=== PATIENT | female | born 1945 | race Caucasian/White ===

== ENCOUNTER 2023-07-14 15:51 | Observation (INO) ==
[2023-07-14 16:27] LABS: ABS Lymphocytes 1.3 10^3/uL (1.0-4.8); ABS Monocytes 0.9 10^3/uL (0.0-0.9); ABS Neutrophils 7.7 10^3/uL (1.5-7.6); ABS Nucleated RBC 0.01 10^3/ul; Eosinophil % 0.4 %; Hematocrit 36.2 % (35-45); Hemoglobin 12.6 g/dL (11.5-14.3); Mean Corpuscular Hemoglobin 31.4 pg (27-33); Mean Corpuscular Hgb Conc 34.7 g/dL (31-36); Mean Corpuscular Volume 90.5 fL (80-97); Mean Platelet Volume 7.9 fL (7.5-11.2); Nucleated Red Blood Cells % 0.1 /100 WBC (0.0-0.4); Platelet Count 225 10^3/uL (150-450); Red Cell Distribution Width 13.5 % (12-17); White Blood Count 9.9 10^3/uL (3.8-11.8)
[2023-07-14 16:53] LABS: Albumin 3.5 g/dL (3.2-5.2); Albumin/Globulin Ratio 1.3 (1-3); C Reactive Protein 139.68 mg/L (<8.01); Calcium 8.7 mg/dL (8.6-10.3); Creatinine, Serum 1.17 mg/dL (0.51-0.95); Globulin 2.8 g/dL (2-4); Potassium 4.3 mmol/L (3.5-5.0); Total Bilirubin 0.6 mg/dL (0.2-1.0); Total Protein 6.3 g/dL (6.4-8.9); eGFR CKD-EPI 48.4 (>60)
[2023-07-14] MEDS ORDERED: Iodixanol (CONTRAST) 320 MG/ML 100 ML SDV IV ONE (17:44)
[2023-07-14 17:47] LABS: High Sensitivity Troponin 1 Hr 8 pg/mL (<15)
[2023-07-14] MEDS ORDERED: Heparin 5000 UNITS/ML 1 mL VIAL IV SCH (20:00)
[2023-07-14 20:42] LABS: ABS Eosinophils 0.1 10^3/uL (0.0-0.5); ABS Lymphocytes 1.9 10^3/uL (1.0-4.8); ABS Neutrophils 7.2 10^3/uL (1.5-7.6); Eosinophil % 0.6 %; Hematocrit 35.1 % (35-45); Hemoglobin 12.3 g/dL (11.5-14.3); Lymphocyte % 19.1 %; Mean Corpuscular Hemoglobin 31.8 pg (27-33); Mean Corpuscular Hgb Conc 35.1 g/dL (31-36); Mean Corpuscular Volume 90.5 fL (80-97); Mean Platelet Volume 7.9 fL (7.5-11.2); Platelet Count 211 10^3/uL (150-450); Red Blood Count 3.88 10^6/uL (3.63-4.92); Red Cell Distribution Width 13.7 % (12-17); White Blood Count 10.2 10^3/uL (3.8-11.8)
[2023-07-14] MEDS: Heparin DRIP 25,000 UNITS BAG 25,000 UNITS/500 ML BAG IV SCH (20:59)
[2023-07-14 21:02] LABS: Creatinine, Serum 0.82 mg/dL (0.51-0.95); eGFR CKD-EPI 74.1 (>60)
[2023-07-14 22:54] LABS: Erythrocyte Sed Rate 80 mm/Hr (0-29)
[2023-07-15 05:00] LABS: ABS Basophils 0.1 10^3/uL (0.0-0.1); ABS Eosinophils 0.1 10^3/uL (0.0-0.5); ABS Lymphocytes 1.8 10^3/uL (1.0-4.8); ABS Monocytes 0.7 10^3/uL (0.0-0.9); ABS Neutrophils 4.8 10^3/uL (1.5-7.6); Eosinophil % 1.1 %; Hematocrit 35.3 % (35-45); Hemoglobin 12.3 g/dL (11.5-14.3); Lymphocyte % 23.8 %; Mean Corpuscular Hemoglobin 31.8 pg (27-33); Mean Corpuscular Hgb Conc 34.9 g/dL (31-36); Mean Corpuscular Volume 90.9 fL (80-97); Mean Platelet Volume 7.7 fL (7.5-11.2); Platelet Count 213 10^3/uL (150-450); Red Blood Count 3.88 10^6/uL (3.63-4.92); Red Cell Distribution Width 13.5 % (12-17); White Blood Count 7.4 10^3/uL (3.8-11.8)
[2023-07-15 05:54] LABS: TSH Ultra Thyroid Stim Horm 3.22 mcIU/mL (0.34-5.60)
[2023-07-15] MEDS: Heparin DRIP 25,000 UNITS BAG 25,000 UNITS/500 ML BAG IV SCH (07:06)
[2023-07-15] MEDS ORDERED: Morphine 10 MG/ML VIAL (1 ml) IV ONE (07:14)
[2023-07-15] MEDS ORDERED: Magnesium Sulfate 2 gm BAG 2 GM/50 ML BAG IVPB ONE (08:31)
[2023-07-15 10:10] LABS: High Sensitivity Troponin 1 Hr 6 pg/mL (<15)
[2023-07-15 10:53] LABS: CRP High Sensitivity > 80.00 mg/L (<2.00)
[2023-07-15] MEDS ORDERED: Furosemide 20 mg/2 ml IV VIAL IV ONE (11:36)
[2023-07-15 18:08] VITALS: BP 111/50
[2023-07-15 22:52] LABS: Sodium 136 mmol/L (135-145)
== END 2023-07-15 18:07 | disposition home or self-care (01) ==
LOC: ED 15:51 → EDHOLD 15:51 → SUATTDRO 19:27 → EDHOLD 19:27
PROVIDERS: ADMIT Internal Medicine; ATTEND Hospitalist